=== PATIENT | female | born 1980 | race Two or more races ===

== ENCOUNTER 2024-04-28 10:12 | Emergency (ER) | payer MEDICARE, SELFPAY ==
[2024-04-28 10:27] VITALS: BP 141/90; PULSE 75; RESP 18; TEMP 37; O2SAT 97; BMI 25.7
[2024-04-28 10:45] VITALS: BP 141/90; PULSE 75; RESP 18; TEMP 37; O2SAT 97
[2024-04-28 10:51] LABS: Basophils % 0.3 %; Eosinophils # 0.1 10^3/uL (0.0-0.8); Eosinophils % 1.2 %; Hematocrit 46.6 % (36-47); Lymphocytes # 2.7 10^3/uL (0.8-4.8); Lymphocytes % 28.5 %; Mean Corpuscular HGB Conc 31.8 g/dL (30-55); Mean Corpuscular Hemoglobin 27.7 pg (27-33); Mean Corpuscular Volume 87.1 fl (85-98); Mean Platelet Volume 12.3 fL (7.4-10.4); Monocytes # 0.4 10^3/uL (0.2-0.9); Monocytes % 4.1 %; Neutrophils # 6.22 10^3/uL (1.8-7.7); Neutrophils % 65.8 %; Nucleated Red Blood Cells % 0 %; Platelet Count 252 10^3/cmm (157-399); Red Blood Count 5.35 10^6/uL (3.85-5.65); Red Cell Distribution Width 14.4 % (12.1-15.1); White Blood Count 9.45 10^3/uL (3.29-11.43)
[2024-04-28 11:04] LABS: HCG, Serum Qual Negative (Negative)
[2024-04-28 11:07] LABS: Alanine Aminotransferase 12 U/L (0-33); Albumin Level 4.1 g/dL (3.5-5.2); Alkaline Phosphatase 72 U/L (35-105); Blood Urea Nitrogen 11 mg/dL (6-20); C Reactive Protein 5.1 mg/L (0.0-4.9); Calcium 9.1 mg/dL (8.5-10.5); Carbon Dioxide 23 mmol/L (22-29); Chloride 97 mmol/L (98-107); Creatinine Clr Calc Pharmacy 118.9471; Globulin 3.2 g/dL (1.3-4.6); Glomerular Filtration Rate 109.1 mL/min (90-130); Glucose 306 mg/dL (65-115); Osmolality Calculated 281 mOsm/kg (285-295); Sodium 130 mmol/L (136-145); Total Bilirubin 0.3 mg/dL (0.15-1.2); Total Protein 7.3 g/dL (6.6-8.7)
[2024-04-28 11:08] LABS: Anion Gap 14.8 (5-19); Aspartate Amino Transferase 16 U/L (0-32); Lactic Sepsis W/Reflex 1.3 mmol/L (0.5-2.2); Potassium 4.8 mmol/L (3.5-5.1)
[2024-04-28 11:11] LABS: Bilirubin Urine Negative (Negative); Blood Urine Negative (Negative); Glucose Urine UA 3+ (Normal); Ketones Urine Negative (Negative); Leukocyte Esterase Urine Negative (Negative); Nitrate Urine Negative (Negative); Protein Urine Negative (Negative); Urine Appearance Clear (CLEAR); Urine Color Yellow (Yellow); Urobilinogen Urine 0.2 mg/dL (Negative); pH Urine 5.5 (5-7)
--- NOTE | 2024-04-28 11:17 | CTR_ITS ---
PROCEDURE INFORMATION: Exam: CT Abdomen And Pelvis With Contrast Exam date and time: 04/28/2024 11:24 AM Age: 43 years old Clinical indication: Abdominal pain; Localized; Right lower quadrant (rlq); Prior surgery; Surgery date: 6+ months; Surgery type: Gb, hysto TECHNIQUE: Imaging protocol: Computed tomography of the abdomen and pelvis with contrast. Total images: 204 Radiation optimization: All CT scans at this facility use at least one of these dose optimization techniques: automated exposure control; mA and/or kV adjustment per patient size (includes targeted exams where dose is matched to clinical indication); or iterative reconstruction. Contrast material: OMNI 350; Contrast volume: 100 ml; Contrast route: INTRAVENOUS (IV); COMPARISON: No relevant prior studies available. RADIATION DOSE METRICS: Total DLP (mGy-cm): 464.23 FINDINGS: Lungs: Imaged portions of the lung bases demonstrate minimal scarring and/or atelectasis. Liver: An indistinct area of faintly decreased attenuation is present anteriorly within the liver (series 4, image 20) possibly focal fatty infiltration although not confirmatory. Otherwise the liver is homogeneous without enlargement. Gallbladder and biliary ducts: The patient is status post cholecystectomy, the extrahepatic bile duct is not significantly dilated for the cholecystectomy state. Pancreas: Multiple coarse calcifications are present within the head and body of the pancreas with dilatation of the main pancreatic duct up to 5 mm diameter without secondary evidence of acute pancreatitis. A linear density of 2 cm length appears to represent a pancreatic duct stent within the pancreatic head extending into the duodenum. Spleen: Unremarkable. Adrenal glands: Not enlarged. Kidneys and ureters: A 1.7 cm homogeneous structure present within the midportion of the left kidney, measuring +25 HU, slightly elevated above expectations for a simple cyst. Recommend initial further characterization by ultrasound. Otherwise the kidneys appear unremarkable. Stomach and bowel: No bowel obstruction evident. Appendix: No acute inflammatory change of the appendix identified. Intraperitoneal space: No free intraperitoneal fluid. Vasculature: Atherosclerotic vascular calcification is present without abdominal aortic aneurysm. Lymph nodes: Incompletely imaged is an enlarged right inguinal node measuring 2.5 x 1.9 cm on series 4, image 91, recommend correlation with physical examination. Urinary bladder: Unremarkable as visualized. Reproductive: No acute inflammatory change of the appendix the patient is status post hysterectomy. Structures consistent with nonenlarged bilateral ovaries are noted. Bones/joints: Unremarkable for age. Soft tissues: Scarring present in the anterior abdominal wall subcutaneous fat suggesting sequelae of prior surgery. CT/CT abdomen pelvis w con* [id number] IMPRESSION: 1. Indistinct 2.5 cm focus of decreased attenuation in the liver, possibly focal fatty infiltration. Recommend correlation with liver function tests. If indicated consider follow-up with nonemergent liver protocol MRI. 2. Findings consistent with chronic calcific pancreatitis. Mild pancreatic ductal dilatation in the pancreatic body up to 5 mm, without evidence of acute pancreatitis. Pancreatic duct stent. 3. Left renal 1.7 cm structure, possibly a mildly hyperdense cysts but further evaluation is recommended initially with renal ultrasound. 4. Enlarged enhancing right inguinal node, incompletely imaged. This is nonspecific but recommend correlation with physical examination. COMMENTS: Consistent with the [employer]'s Incidental Findings Committee white paper (J Am Quinn [employer]iol 2018): Any incidental renal lesion less than 1 cm or classified as too small to characterize, or any incidental cystic renal lesion characterized as simple-appearing, is likely benign. No follow-up imaging is recommended for these lesions per consensus recommendations based on imaging criteria.
[2024-04-28 11:24] LABS: Specific Gravity, Urine 1.039 (1.005-1.030)
[2024-04-28 11:27] LABS: Bacteria Urine None Seen /hpf; Hyaline Casts Urine 0-4 /lpf; RBC Urine 0-2 /hpf (0-2); Squamous Epithelial Cell Urine 0-5 /hpf (0-5); WBC Urine 0-5 /hpf (0-5)
[2024-04-28] MEDS: iohexol 350 mg/mL 500 mL Btl (per mL) IV (11:29)
--- NOTE | 2024-04-28 11:33 | ED_ITS ---
HPI - Abdominal Pain 2 General: Chief Complaint: Abdominal Pain Stated Complaint: Lower right stomach pain Time Seen by Provider: 04/28/24 10:33 History of Present Illness: 43-year-old female with a history of ivy haris who presents emergency room with abdominal pain. She says she has had pain for almost a week now but has become much worse over the last couple days. She is go back to work tomorrow and wanted to make sure there was nothing serious going on. Some nausea but no vomiting. No fevers. Normal bowel movements. No chest pain. No shortness of breath. No altered mental status. Related Data Previous Rx's Medication Instructions Recorded ondansetron 8 mg disintegrating 8 mg PO Q6H #14 tabs 04/28/24 tablet tramadol 50 mg tablet 50 mg PO Q8H PRN pain #20 tabs 04/28/24 Allergies Allergy/AdvReac Type Severity Reaction Status Date / Time gabapentin Allergy ADR-Dizzine Verified 04/28/24 10:30 ss morphine Allergy ADR-Nausea Verified 04/28/24 10:30 NSAIDS (Non-Steroidal Allergy Unknown Verified 04/28/24 10:30 Anti-Inflamma Review of Systems 2 Narrative: Constitutional symptoms: Negative except as documented in HPI. Skin symptoms: Negative except as documented in HPI. Eye symptoms: Negative except as documented in HPI. ENMT symptoms: Negative except as documented in HPI. Respiratory symptoms: Negative except as documented in HPI. Cardiovascular symptoms: Negative except as documented in HPI. Gastrointestinal symptoms: Negative except as documented in HPI. Genitourinary symptoms: Negative except as documented in HPI. Musculoskeletal symptoms: Negative except as documented in HPI. Neurologic symptoms: Negative except as documented in HPI. Psychiatric symptoms: Negative except as documented in HPI. Endocrine symptoms: Negative except as documented in HPI. Physical Exam 2 Narrative: EXAM NARRATIVE: General: Alert, no acute distress. Skin: Warm, dry. Head: Normocephalic, atraumatic. Neck: Supple, trachea midline. Eye: Extraocular movements are intact. Ears, nose, mouth and throat: mucosa moist. Cardiovascular: Regular, Normal peripheral perfusion. Respiratory: Lungs are clear to auscultation, respirations are non-labored, breath sounds are equal, Symmetrical chest wall expansion. Gastrointestinal: Soft, some right lower quadrant abdominal pain, Non distended Musculoskeletal: Normal ROM, no deformity. Neurological: Alert and oriented, No focal neurological deficit observed. Psychiatric: Cooperative, appropriate mood & affect. Course 2 Vital Signs: Vital signs: Vital Signs Temperature 98.6 F 04/28/24 10:45 Pulse Rate 75 04/28/24 10:45 Respiratory Rate 18 04/28/24 10:45 Blood Pressure 141/90 04/28/24 10:45 Pulse Oximetry 97 04/28/24 10:45 Oxygen Delivery Me thod Room Air 04/28/24 10:45 MDM - Abdominal Pain Medical Decision Making Medical decision making: Differential diagnosis for this patient with right lower quadrant abdominal pain including but not limited to and based on the above HPI, review of systems and physical exam: Ureterolithiasis. Urinary tract infection. Appendicitis. colitis. small bowel obstruction. Crohn's flare. Pancreatitis. Cholelithiasis or cholecystitis. Hepatitis. Diverticulitis. Constipation. ovarian cyst. ovarian torsion Workup: Orders were placed to evaluate differential diagnosis based on the above differential, HPI and exam: Lab Review: Laboratory results were reviewed and interpreted by myself the emergency room physician. Normal white count at 9.5. Hemoglobin normal at 14.8. BUN and creatinine are normal at 11 and 0.6. She is a bit hyperglycemic with glucose of 306. Her urine is quite concentrated at 1.039 which would indicate dehydration. A liter of fluids is ordered. She has 3+ glucose with no ketones in her urine. No signs of urinary infection. CT of the abdomen pelvis with contrast: 2 cm decreased attenuation in the liver. However liver enzymes are not elevated. Chronic calcific pancreatitis which is known. Left renal structure that is likely a cyst but will need a ultrasound at some point. This was reviewed and interpreted by myself the emergency room physician. I also reviewed the radiology report. I reviewed the patient's medical record Reexamination: Patient remained stable. No increased work of breathing. No altered mental status. No focal motor deficits. I discussed the findings of the cystic Structures on her liver and kidney that we will need follow-up. Assessment and plan: Abdominal pain Dehydration Hyperglycemia ? Normal saline bolus in the emergency room. - Discharged home - Discussed findings and plan with patient. Answered any questions. - All laboratory values were reviewed and interpreted personally by myself, the ER physician - All imaging was reviewed and interpreted personally by myself, the ER physician. - Evaluation and treatment of this problem were appropriate in the emergency setting Lab Data 04/28/24 10:44 04/28/24 10:44 Labs/Radiology: Radiology Impressions Abdomen/Pelvis CT 04/28/24 11:17 IMPRESSION: 1. Indistinct 2.5 cm focus of decreased attenuation in the liver, possibly focal fatty infiltration. Recommend correlation with liver function tests. If indicated consider follow-up with nonemergent liver protocol MRI. 2. Findings consistent with chronic calcific pancreatitis. Mild pancreatic ductal dilatation in the pancreatic body up to 5 mm, without evidence of acute pancreatitis. Pancreatic duct stent. 3. Left renal 1.7 cm structure, possibly a mildly hyperdense cysts but further evaluation is recommended initially with renal ultrasound. 4. Enlarged enhancing right inguinal node, incompletely imaged. This is nonspecific but recommend correlation with physical examination. COMMENTS: Consistent with the [employer]'s Incidental Findings Committee white paper (J Am Quinn Radiol 2018): Any incidental renal lesion less than 1 cm or classified as too small to characterize, or any incidental cystic renal lesion characterized as simple-appearing, is likely benign. No follow-up imaging is recommended for these lesions per consensus recommendations based on imaging criteria. Laboratory Results WBC 9.45 10^3/uL (3.29-11.43) 04/28/24 10:44 RBC 5.35 10^6/uL (3.85-5.65) 04/28/24 10:44 Hgb 14.80 g/dL (11.27-16.99) 04/28/24 10:44 Hct 46.6 % (36-47) 04/28/24 10:44 MCV 87.1 fl (85-98) 04/28/24 10:44 MCH 27.7 pg (27-33) 04/28/24 10:44 MCHC 31.8 g/dL (30-55) 04/28/24 10:44 RDW 14.4 % (12.1-15.1) 04/28/24 10:44 Plt Count 252 10^3/cmm (157-399) 04/28/24 10:44 MPV 12.3 fL (7.4-10.4) H 04/28/24 10:44 Neut % (Auto) 65.8 % 04/28/24 10:44 Lymph % (Auto) 28.5 % 04/28/24 10:44 Sullivan % (Auto) 4.1 % 04/28/24 10:44 Eos % (Auto) 1.2 % 04/28/24 10:44 Baso % (Auto) 0.3 % 04/28/24 10:44 Neut # (Auto) 6.22 10^3/uL (1.8-7.7) 04/28/24 10:44 Lymph # (Auto) 2.7 10^3/uL (0.8-4.8) 04/28/24 10:44 Sullivan # (Auto) 0.4 10^3/uL (0.2-0.9) 04/28/24 10:44 Eos # (Auto) 0.1 10^3/uL (0.0-0.8) 04/28/24 10:44 Baso # (Auto) 0.0 10^3/uL (0.0-0.1) 04/28/24 10:44 Nucleated RBC % (auto) 0 % 04/28/24 10:44 Nucleated RBCs # 0.0 /100WBC 04/28/24 10:44 Sodium 130 mmol/L (136-145) L 04/28/24 10:44 Potassium 4.8 mmol/L (3.5-5.1) 04/28/24 10:44 Chloride 97 mmol/L (98-107) L 04/28/24 10:44 Carbon Dioxide 23 mmol/L (22-29) 04/28/24 10:44 Anion Gap 14.8 (5-19) 04/28/24 10:44 BUN 11 mg/dL (6-20) 04/28/24 10:44 Creatinine 0.6 mg/dL (0.5-0.9) 04/28/24 10:44 GFR Calculation 109.1 mL/min (90-130) 04/28/24 10:44 Glucose 306 mg/dL (65-115) H 04/28/24 10:44 Calculated Osmolality 281 mOsm/kg (285-295) L 04/28/24 10:44 Lactic Acid 1.3 mmol/L (0.5-2.2) 04/28/24 10:44 Calcium 9.1 mg/dL (8.5-10.5) 04/28/24 10:44 Total Bilirubin 0.3 mg/dL (0.15-1.2) 04/28/24 10:44 AST 16 U/L (0-32) 04/28/24 10:44 ALT 12 U/L (0-33) 04/28/24 10:44 Alkaline Phosphatase 72 U/L (35-105) 04/28/24 10:44 C-Reactive Protein 5.1 mg/L (0.0-4.9) H 04/28/24 10:44 Total Protein 7.3 g/dL (6.6-8.7) 04/28/24 10:44 Albumin 4.1 g/dL (3.5-5.2) 04/28/24 10:44 Globulin 3.2 g/dL (1.3-4.6) 04/28/24 10:44 HCG, Qual Negative (Negative) 04/28/24 10:44 Urine Color Yellow (Yellow) 04/28/24 10:53 Urine Appearance Clear (CLEAR) 04/28/24 10:53 Urine pH 5.5 (5-7) 04/28/24 10:53 Ur Specific Mio 1.039 (1.005-1.030) H 04/28/24 10:53 Urine Protein Negative (Negative) 04/28/24 10:53 Urine Glucose (UA) 3+ (Normal) H 04/28/24 10:53 Urine Ketones Negative (Negative) 04/28/24 10:53 Urine Blood Negative (Negative) 04/28/24 10:53 Urine Nitrate Negative (Negative) 04/28/24 10:53 Urine Bilirubin Negative (Negative) 04/28/24 10:53 Urine Urobilinogen 0.2 mg/dL (Negative) 04/28/24 10:53 Ur Leukocyte Esterase Negative (Negative) 04/28/24 10:53 Urine RBC 0-2 /hpf (0-2) 04/28/24 10:53 Urine WBC 0-5 /hpf (0-5) 04/28/24 10:53 Ur Squamous Epith Cells 0-5 /hpf (0-5) 04/28/24 10:53 Amorphous Sediment Not Reportable 04/28/24 10:53 Urine Bacteria None seen /hpf (NONE) 04/28/24 10:53 Hyaline Casts 0-4 /lpf H 04/28/24 10:53 All radiology interpretation(s) finalized by discharge Discharge Plan Discharge Patient Disposition: Home Clinical Impression: Abdominal pain, Dehydration, Hyperglycemia Condition: Stable Prescriptions: New tramadol 50 mg tablet 50 mg PO Q8H PRN (Reason: pain) Qty: 20 0RF ondansetron 8 mg tablet,disintegrating 8 mg PO Q6H Qty: 14 0RF Rx Instructions: Take 1/2-1 tab every 6 hours as needed for nausea and vomiting Discharge Orders: Discharge ED (Routine); Ordered 04/28/24 Ordered By: Randi Rodriguez Discharge Diet: Usual diet Discharge Activity: Increase activity as tolerated Patient Instructions: Abdominal Pain (ED), Pain Management Activity Restrictions/Additional Instructions: Please arrange for follow-up with her primary provider as soon as possible. Need follow-up for cystic structures seen in your liver and your kidneys. Thank you for choosing [facility] for your healthcare needs today. Please realize this is an emergency room and that we are providing you with a medical screening exam and this may not be complete and all inclusive of all the testing and or work up that you may need to determine your ailment or severity of your illness. You have been screened and evaluated and felt safe for discharge. Health conditions do change or evolve sometimes and as such it is important that you follow up with your Primary Doctor to be re checked, 3-5 days is a general good time frame for follow up. You are always welcome to return to the ED for re assessment if your symptoms are worsening or you have new concerns Coding Level of Care Code ED [employer] for Brielle Quiroga
[2024-04-28] MEDS: sodium chloride 0.9% 1,000 ML 999 ML IV (11:43)
[2024-04-28 13:19] VITALS: BP 168/97; PULSE 64; O2SAT 98
== END 2024-04-28 13:20 | disposition home or self-care (01) ==
PROVIDERS: Emergency Provider Emergency Medicine
DX: R10.9 Unspecified abdominal pain (principal); E86.0 Dehydration; E11.65 Type 2 diabetes mellitus with hyperglycemia
CPT/HCPCS: 74177; 80053; 81001; 83605; 84703; 85025; 86140; 99285; J7030